=== PATIENT | female | born 2000 | race Caucasian/White ===

== ENCOUNTER 2022-06-16 09:42 | Emergency (ER) | payer MEDICAID, OTHER ==
[~2022-06-16] VITALS: Ht 157 cm; Wt 59.0 kg
[2022-06-16 09:50] VITALS: BP 100/59
[2022-06-16] MEDS ORDERED: NS IV 1000 ML 2,000 ML IV STA (09:58)
[2022-06-16] MEDS ORDERED: ONDANSETRON 4 MG/2 ML (SDV) Z0FRAN IVP ONE (10:00)
[2022-06-16 10:02] LABS: BILIRUBIN,URINE NEGATIVE (NEGATIVE); CLARITY,URINE CLEAR; COLOR,URINE YELLOW; GLUCOSE, URINE (UA) 3+ (NEGATIVE); KETONES,URINE 3+ (NEGATIVE); LEUKOCYTE ESTERASE ,URINE NEGATIVE (NEGATIVE); NITRITE,URINE NEGATIVE (NEGATIVE); PH,URINE 5.5 (5-9); PROTEIN,URINE TRACE (NEGATIVE)
--- NOTE | 2022-06-16 10:03 | ED General ---
General Chief Complaint: Abdominal/GI Problems Stated Complaint: VOMITING; ARIN SHLDR PAIN; LETHARGY Source of Information: Patient, Other (boyfriend) Exam Limitations: No Limitations History of Present Illness Date Seen by Provider: Jun 16, 2022 Time Seen by Provider: 09:46 Initial Comments 21-year-old female type I diabetic presents to the emergency department today for nausea vomiting. She states symptoms present for the last day or 2. She ran out of her diabetic testing strips. She believes she may be in DKA. She denies any fevers but has had chills. She has diffuse abdominal cramping as well as vomiting. Emesis is nonbloody nonbilious. Normal stools. Denies . No vaginal or urinary symptoms. All other systems reviewed and negative except documented per HPI. Voice recognition software was used to help create this chart Allergies and Home Medications Allergies Coded Allergies: No Known Drug Allergies (Unverified , 06/16/22) Patient Home Medication List Home Medication List Reviewed: Yes Review of Systems Review of Systems Constitutional: see HPI Past Rowxgld-Jgzfes-Waojdd Hx Patient Social History Tobacco Use?: Yes Tobacco type used: Cigarettes Smoking Status: Current Everyday Smoker Use of E-Cig and/or Vaping dev: No Substance use?: Yes Substance type: Methamphetamine, Opiates/Opioids, Misuse of prescript meds, Marijuana Substance frequency: Daily Alcohol Use?: Yes Alcohol type: Hard Liquor Alcohol Frequency: Once in a while Past Medical History Surgery/Hospitalization HX: DM TYPE 1 Physical Exam Vital Signs Vital Signs - First Documented 06/16/22 09:50 Temp 36.6 Pulse 118 Resp 16 B/P (MAP) 100/59 (73) Pulse Ox 100 O2 Delivery Room Air Capillary Refill : Height, Weight, BMI Height: '" Weight: lbs. oz. kg; BMI Method: General Appearance: No Apparent Distress, Other (Somnolent) HEENT: Normal ENT Inspection, Pharynx Normal Neck: Full Range of Motion, Normal Inspection, Supple Respiratory: Chest Non Tender, Lungs Clear, Other (Tachypnea) Cardiovascular: No Murmur, Tachycardia Gastrointestinal: Normal Bowel Sounds, Non Tender, Soft Extremity: Normal Capillary Refill, Normal Inspection, Non Tender Neurologic/Psychiatric: Alert, Oriented x3, Normal Mood/Affect Skin: Normal Color, Warm/Dry Progress/Results/Core Measures Suspected Sepsis SIRS Temperature: Pulse: Respiratory Rate: Laboratory Tests 06/16/22 10:03: White Blood Count 10.0 Blood Pressure / Mean: Laboratory Tests 06/16/22 10:03: Creatinine 0.84, Platelet Count 418H, Total Bilirubin 0.7 Results/Orders Lab Results Laboratory Tests Test 06/16/22 09:50 06/16/22 09:55 06/16/22 10:03 Range/Units Urine Color YELLOW Urine Clarity CLEAR Urine pH 5.5 5-9 Urine Specific [place] 1.025 H 1.016-1.022 Urine Protein TRACE H NEGATIVE Urine Glucose (UA) 3+ H NEGATIVE Urine Ketones 3+ H NEGATIVE Urine Nitrite NEGATIVE NEGATIVE Urine Bilirubin NEGATIVE NEGATIVE Urine Urobilinogen 0.2 < = 1.0 MG/DL Urine Leukocyte Esterase NEGATIVE NEGATIVE Urine RBC (Auto) TRACE-I H NEGATIVE Urine RBC 0-2 /HPF Urine WBC 2-5 /HPF Urine Squamous Epithelial Cells 5-10 /HPF Urine Crystals NONE /LPF Urine Bacteria NEGATIVE /HPF Urine Casts NONE /LPF Urine Mucus NEGATIVE /LPF Urine Culture Indicated NO Glucometer 570 *H 70-110 MG/DL White Blood Count 10.0 4.3-11.0 10^3/uL Red Blood Count 4.78 3.80-5.11 10^6/uL Hemoglobin 13.5 11.5-16.0 g/dL Hematocrit 42 35-52 % Mean Corpuscular Volume 87 80-99 fL Mean Corpuscular Hemoglobin 28 25-34 pg Mean Corpuscular Hemoglobin Concent 32 32-36 g/dL Red Cell Distribution Width 14.4 10.0-14.5 % Platelet Count 418 H 130-400 10^3/uL Mean Platelet Volume 9.7 9.0-12.2 fL Immature Granulocyte % (Auto) 1 % Neutrophils (%) (Auto) 76 H 42-75 % Lymphocytes (%) (Auto) 18 12-44 % Monocytes (%) (Auto) 4 0-12 % Eosinophils (%) (Auto) 1 0-10 % Basophils (%) (Auto) 1 0-10 % Neutrophils # (Auto) 7.5 1.8-7.8 10^3/uL Lymphocytes # (Auto) 1.7 1.0-4.0 10^3/uL Monocytes # (Auto) 0.4 0.0-1.0 10^3/uL Eosinophils # (Auto) 0.1 0.0-0.3 10^3/uL Basophils # (Auto) 0.1 0.0-0.1 10^3/uL Immature Granulocyte # (Auto) 0.1 0.0-0.1 10^3/uL Sodium Level 133 L 135-145 MMOL/L Potassium Level 4.8 3.6-5.0 MMOL/L Chloride Level 93 L 98-107 MMOL/L Carbon Dioxide Level 10 L 21-32 MMOL/L Anion Gap 30 H 5-14 MMOL/L Blood Urea Nitrogen 19 H 7-18 MG/DL Creatinine 0.84 0.60-1.30 MG/DL Estimat Glomerular Filtration Rate 101 BUN/Creatinine Ratio 23 Glucose Level 596 *H 70-105 MG/DL Calcium Level 10.1 8.5-10.1 MG/DL Corrected Calcium 8.5-10.1 MG/DL Total Bilirubin 0.7 0.1-1.0 MG/DL Aspartate Amino Transf (AST/SGOT) 22 5-34 U/L Alanine Aminotransferase (ALT/SGPT) 17 0-55 U/L Alkaline Phosphatase 134 40-136 U/L Total Protein 8.5 H 6.4-8.2 GM/DL Albumin 4.9 H 3.2-4.5 GM/DL Lipase 15 8-78 U/L My Orders Orders - FELISA GONZALES DO Cbc With Automated Diff (06/16/22 09:57) Comprehensive Metabolic Panel (06/16/22 09:57) Lipase (06/16/22 09:57) Ua Culture If Indicated (06/16/22 09:57) Urine Bedside (06/16/22 09:57) Ns Iv 1000 Ml (Sodium Chloride 0.9%) (06/16/22 09:58) Ondansetron Injection (Zofran Injectio (06/16/22 10:00) Ed Iv/Invasive Line Start (06/16/22 10:11) Insulin Regular Drip (Myxredlin 100 Unit (06/16/22 10:45) Medications Given in ED Current Medications Medications Dose Ordered Sig/Gabriel Route Start Time Stop Time Status Last Admin Dose Admin Ondansetron HCl 8 mg ONCE ONCE IVP 06/16/22 10:00 06/16/22 10:01 DC 06/16/22 10:05 8 MG Vital Signs/I&O 06/16/22 09:50 Temp 36.6 Pulse 118 Resp 16 B/P (MAP) 100/59 (73) Pulse Ox 100 O2 Delivery Room Air Capillary Refill : Point of Care Testing Finger Stick Blood Glucose: 570 Blood Glucose Action Taken: Dr notified Critical Care Note Critical Care Total Time (minutes) 45 Departure Communication (Admissions) Bedside glucose greater than 500. Bedside test negative. Ordered IV fluids. We will go ahead and order labs but she likely has DKA. We will wait on her potassium prior to starting insulin. No other evidence for infectious cause. This is likely secondary to medication noncompliance as stated by the patient. 1045: Spoke to Dr. Kumar who accepts the patient admission to the ICU for DKA. She has blood sugar 596. Her bicarb is significantly low and her anion gap is elevated. Sodium and potassium are normal. Renal function is relatively normal with a slightly elevated BUN. No evidence for infectious source I think this is all related to medication noncompliance. She has been given 2 L of IV fluids here and started on an insulin drip. She will be transported to [facility] in otherwise stable condition to the ICU. While waiting transport the patient called her boyfriend. He stated that he and his friends were going to [place]. She stated she wanted to go with them to do what ever they were doing I did not feel like she needed to be hospitalized at this time. I did indicate that this is a life-threatening condition and symptoms are likely to get worse, especially since she has not been using her insulin and does not have any strips to check her blood sugars. She states understanding and demands to leave stating she knows the risks. She states if she has trouble she will go straight to the ER in [place] rather than taking an ambulance there. Advised her she is welcome to come back here at any time for further evaluation and treatment. Impression Primary Impression: DKA (diabetic ketoacidosis) Qualified Codes: E10.10 - Type 1 diabetes mellitus with ketoacidosis without coma Disposition: AGAINST MEDICAL ADVICE Condition: Against Medical Advice Admissions Decision to Admit Reason: Admit from ER (General) Departure-Patient Inst. Referrals: NO,LOCAL PHYSICIAN (PCP) Primary Care Physician FELISA GONZALES DO Jun 16, 2022 10:03
[2022-06-16 10:15] LABS: BASOPHILS # (AUTO) 0.1 10^3/uL (0.0-0.1); BASOPHILS % (AUTO) 1 % (0-10); EOSINOPHILS # (AUTO) 0.1 10^3/uL (0.0-0.3); EOSINOPHILS % (AUTO) 1 % (0-10); HEMATOCRIT 42 % (35-52); HEMOGLOBIN 13.5 g/dL (11.5-16.0); LYMPHOCYTES # (AUTO) 1.7 10^3/uL (1.0-4.0); LYMPHOCYTES % (AUTO) 18 % (12-44); MEAN CORPUSCULAR HEMOGLOBIN 28 pg (25-34); MEAN CORPUSCULAR HGB CONC 32 g/dL (32-36); MEAN CORPUSCULAR VOLUME 87 fL (80-99); MEAN PLATELET VOLUME 9.7 fL (9.0-12.2); MONOCYTES # (AUTO) 0.4 10^3/uL (0.0-1.0); MONOCYTES % (AUTO) 4 % (0-12); NEUTROPHILS # (AUTO) 7.5 10^3/uL (1.8-7.8); NEUTROPHILS % (AUTO) 76 % (42-75); PLATELET COUNT 418 10^3/uL (130-400)
[2022-06-16 10:21] LABS: BACTERIA,URINE NEGATIVE /HPF; RBC,URINE 0-2 /HPF
[2022-06-16 10:32] LABS: LIPASE 15 U/L (8-78)
[2022-06-16 10:38] LABS: CARBON DIOXIDE 10 MMOL/L (21-32); CHLORIDE 93 MMOL/L (98-107); POTASSIUM 4.8 MMOL/L (3.6-5.0); SODIUM 133 MMOL/L (135-145)
[2022-06-16 10:39] LABS: ALANINE AMINOTRANSFERASE 17 U/L (0-55); ALBUMIN 4.9 GM/DL (3.2-4.5); ALKALINE PHOSPHATASE 134 U/L (40-136); BILIRUBIN,TOTAL 0.7 MG/DL (0.1-1.0); BUN/CREATININE RATIO 23; CALCIUM 10.1 MG/DL (8.5-10.1); CREATININE SERUM 0.84 MG/DL (0.60-1.30); GFR ESTIMATED 101; TOTAL PROTEIN 8.5 GM/DL (6.4-8.2)
[2022-06-16 10:41] LABS: GLUCOSE 596 MG/DL (70-105)
[2022-06-17] MEDS ORDERED: INSU100V39 SC (10:31)
[2022-06-17] MEDS ORDERED: INSN1U SC (10:31)
[2022-06-18] MEDS ORDERED: INSU100I14 SQ ×2 (10:33→11:50)
[2022-06-18] MEDS ORDERED: INSU100I10 SQ ×2 (10:33→11:50)
[2022-06-18] MEDS ORDERED: [UNRECOGNIZED DRUG - CODE] MC (12:32)
== END 2022-06-16 11:18 | disposition left against medical advice (07) ==
LOC: EDUNIT# 09:42 → ER FS 09:45
DX: E10.10 Type 1 diabetes mellitus with ketoacidosis without coma (principal); R94.4 Abnormal results of kidney function studies; T38.3X6A Underdosing of insulin and oral hypoglycemic [antidiabetic] drugs, initial encounter; F17.210 Nicotine dependence, cigarettes, uncomplicated; Z91.128 Patient's intentional underdosing of medication regimen for other reason; Z28.310 Unvaccinated for COVID-19
CPT/HCPCS: 36415; 80053; 81000; 82947; 83690; 84703; 85025

== ENCOUNTER 2022-06-16 18:41 | Inpatient (IN) | payer MEDICAID ==
[~2022-06-16] VITALS: Ht 157.5 cm; Wt 54.2 kg
[2022-06-16] MEDS ORDERED: NS IV 1000 ML 1,000 ML IV SCH ×3 (19:00→23:45)
--- NOTE | 2022-06-16 19:02 | ED General ---
General Stated Complaint: TROUBLE SEEING/AMS Source of Information: Patient Exam Limitations: No Limitations History of Present Illness Date Seen by Provider: Jun 16, 2022 Time Seen by Provider: 18:48 Initial Comments 21-year-old female presents emergency department today thinking she is in DKA. She was here this morning and left AGAINST MEDICAL ADVICE we tried to transfer her for inpatient treatment. She states she changed her mind and requests to be evaluated once again and would accept admission at this time. No other changes from this morning. She is feeling overall fatigued and having increased uri nation and thirst. No fevers or chills. She has been out of her insulin strips so not checking her blood sugars at home. She has not used insulin in a couple of days All other systems reviewed and negative except documented per HPI. Voice recognition software was used to help create this chart Allergies and Home Medications Allergies Coded Allergies: No Known Drug Allergies (Unverified , 06/16/22) Patient Home Medication List Home Medication List Reviewed: Yes Review of Systems Review of Systems Constitutional: see HPI Past Ralmfbi-Frfeir-Kkqlbb Hx Past Medical History Surgery/Hospitalization HX: DM TYPE 1 Family Medical History Reviewed Nursing Family Hx No Pertinent Family Hx Physical Exam Vital Signs Vital Signs - First Documented 06/16/22 18:53 Temp 36.7 Pulse 124 Resp 20 B/P (MAP) 119/65 (83) Pulse Ox 100 O2 Delivery Room Air Capillary Refill : Height, Weight, BMI Height: '" Weight: lbs. oz. kg; 23.00 BMI Method: General Appearance: No Apparent Distress, WD/WN, Other (Slurred speech) HEENT: Normal ENT Inspection, Pharynx Normal Neck: Full Range of Motion, Normal Inspection, Non Tender, Supple Respiratory: Chest Non Tender, Lungs Clear, Normal Breath Sounds, No Accessory Muscle Use, No Respiratory Distress Cardiovascular: No Murmur, Normal Peripheral Pulses, Tachycardia Gastrointestinal: Normal Bowel Sounds, No Organomegaly, No Pulsatile Mass, Non Tender, Soft Back: Normal Inspection Extremity: Normal Capillary Refill, No Calf Tenderness Neurologic/Psychiatric: Alert, Oriented x3, Normal Mood/Affect Skin: Normal Color, Warm/Dry Progress/Results/Core Measures Suspected Sepsis SIRS Temperature: Pulse: Respiratory Rate: Laboratory Tests 06/16/22 19:05: White Blood Count 31.5*H Blood Pressure / Mean: Laboratory Tests 4/25/23 19:05: Creatinine 0.87, Platelet Count 506H, Total Bilirubin 0.4 Results/Orders Lab Results Laboratory Tests Test 06/16/22 19:02 06/16/22 19:05 Range/Units Glucometer 434 *H 70-110 MG/DL White Blood Count 31.5 *H 4.3-11.0 10^3/uL Red Blood Count 4.58 3.80-5.11 10^6/uL Hemoglobin 13.2 11.5-16.0 g/dL Hematocrit 42 35-52 % Mean Corpuscular Volume 91 80-99 fL Mean Corpuscular Hemoglobin 29 25-34 pg Mean Corpuscular Hemoglobin Concent 32 32-36 g/dL Red Cell Distribution Width 14.8 H 10.0-14.5 % Platelet Count 506 H 130-400 10^3/uL Mean Platelet Volume 9.6 9.0-12.2 fL Immature Granulocyte % (Auto) 2 % Neutrophils (%) (Auto) 84 H 42-75 % Lymphocytes (%) (Auto) 7 L 12-44 % Monocytes (%) (Auto) 6 0-12 % Eosinophils (%) (Auto) 0 0-10 % Basophils (%) (Auto) 1 0-10 % Neutrophils # (Auto) 26.5 H 1.8-7.8 10^3/uL Lymphocytes # (Auto) 2.3 1.0-4.0 10^3/uL Monocytes # (Auto) 1.8 H 0.0-1.0 10^3/uL Eosinophils # (Auto) 0.1 0.0-0.3 10^3/uL Basophils # (Auto) 0.2 H 0.0-0.1 10^3/uL Immature Granulocyte # (Auto) 0.5 H 0.0-0.1 10^3/uL Neutrophils % (Manual) 81 % Lymphocytes % (Manual) 11 % Monocytes % (Manual) 4 % Eosinophils % (Manual) 0 % Basophils % (Manual) 0 % Band Neutrophils 4 % Toxic Granulation 1+ Sodium Level 128 L 135-145 MMOL/L Potassium Level 6.0 H 3.6-5.0 MMOL/L Chloride Level 95 L 98-107 MMOL/L Carbon Dioxide Level 4 *L 21-32 MMOL/L Anion Gap 29 H 5-14 MMOL/L Blood Urea Nitrogen 23 H 7-18 MG/DL Creatinine 0.87 0.60-1.30 MG/DL Estimat Glomerular Filtration Rate 97 BUN/Creatinine Ratio 26 Glucose Level 505 *H 70-105 MG/DL Calcium Level 9.4 8.5-10.1 MG/DL Corrected Calcium 8.5-10.1 MG/DL Total Bilirubin 0.4 0.1-1.0 MG/DL Aspartate Amino Transf (AST/SGOT) 25 5-34 U/L Alanine Aminotransferase (ALT/SGPT) 17 0-55 U/L Alkaline Phosphatase 141 H 40-136 U/L Total Protein 8.1 6.4-8.2 GM/DL Albumin 4.8 H 3.2-4.5 GM/DL My Orders Orders - FELISA GONZALES DO Cbc With Automated Diff (06/16/22 18:55) Comprehensive Metabolic Panel (06/16/22 18:55) Ns Iv 1000 Ml (Sodium Chloride 0.9%) (06/16/22 19:00) Insulin Regular Drip (Myxredlin 100 Unit (06/16/22 19:00) Iv/Invasive Line Insertion .IV INSERT (06/16/22 18:59) Manual Differential (06/16/22 19:05) Ekg Tracing (06/16/22 19:52) Calc Gluc 1 Gm/100 Ml Ivpb (Calcium Gluc (06/16/22 20:00) Sodium Bicarbonate 8.4% Syr (Sodium Bica (06/16/22 20:00) Ns Iv 1000 Ml (Sodium Chloride 0.9%) (06/16/22 20:00) Vital Signs/I&O 06/16/22 18:53 Temp 36.7 Pulse 124 Resp 20 B/P (MAP) 119/65 (83) Pulse Ox 100 O2 Delivery Room Air Capillary Refill : ECG Comment sinus tachycardia 118 bpm. Normal intervalsoutside of slightly short MA interval., normal axis. No ST or t wave abnormalities. No ectopy. Critical Care Note Critical Care Total Time (minutes) 60 Departure Communication (Admissions) Patient is hemodynamically stable, alert and oriented. She is mildly tachycardic. She is not in DKA. It is slightly worsened this morning, now has hyperkalemia as well. Once identified EKG obtained showing no EKG changes associated potassium. Given her calcium she is on an insulin drip and she is getting bicarb. I spoke to Dr. Low who accepts the patient in admission. Notably her white blood cell count was 10 this morning. It is markedly elevated now at 31. I think this is not related to infection and more likely an acute phase reactant secondary to DKA and profound hyperglycemia. Impression Primary Impression: DKA (diabetic ketoacidosis) Qualified Codes: E13.10 - Other specified diabetes mellitus with ketoacidosis without coma Disposition: XFER SHT-TRM HOSP Condition: Stable Departure-Patient Inst. Referrals: NO,LOCAL PHYSICIAN (PCP) Primary Care Physician FELISA GONZALES DO Jun 16, 2022 19:02
[2022-06-16 19:11] LABS: BASOPHILS # (AUTO) 0.2 10^3/uL (0.0-0.1); BASOPHILS % (AUTO) 1 % (0-10); EOSINOPHILS # (AUTO) 0.1 10^3/uL (0.0-0.3); EOSINOPHILS % (AUTO) 0 % (0-10); HEMATOCRIT 42 % (35-52); HEMOGLOBIN 13.2 g/dL (11.5-16.0); LYMPHOCYTES # (AUTO) 2.3 10^3/uL (1.0-4.0); LYMPHOCYTES % (AUTO) 7 % (12-44); MEAN CORPUSCULAR HEMOGLOBIN 29 pg (25-34); MEAN CORPUSCULAR HGB CONC 32 g/dL (32-36); MEAN CORPUSCULAR VOLUME 91 fL (80-99); MEAN PLATELET VOLUME 9.6 fL (9.0-12.2); MONOCYTES # (AUTO) 1.8 10^3/uL (0.0-1.0); MONOCYTES % (AUTO) 6 % (0-12); NEUTROPHILS # (AUTO) 26.5 10^3/uL (1.8-7.8); NEUTROPHILS % (AUTO) 84 % (42-75); PLATELET COUNT 506 10^3/uL (130-400)
[2022-06-16 19:14] LABS: WHITE BLOOD COUNT 31.5 10^3/uL (4.3-11.0)
[2022-06-16 19:36] LABS: SODIUM 128 MMOL/L (135-145)
[2022-06-16 19:37] LABS: CHLORIDE 95 MMOL/L (98-107)
[2022-06-16 19:38] LABS: BUN/CREATININE RATIO 26; CARBON DIOXIDE 4 MMOL/L (21-32); CREATININE SERUM 0.87 MG/DL (0.60-1.30); GFR ESTIMATED 97
[2022-06-16 19:39] LABS: ALANINE AMINOTRANSFERASE 17 U/L (0-55); ALBUMIN 4.8 GM/DL (3.2-4.5); ALKALINE PHOSPHATASE 141 U/L (40-136); BILIRUBIN,TOTAL 0.4 MG/DL (0.1-1.0); CALCIUM 9.4 MG/DL (8.5-10.1); GLUCOSE 505 MG/DL (70-105); TOTAL PROTEIN 8.1 GM/DL (6.4-8.2)
[2022-06-16 19:45] LABS: BAND NEUTROPHILS 4 %; BASOPHILS % (MANUAL) 0 %; EOSINOPHILS % (MANUAL) 0 %; LYMPHOCYTES % (MANUAL) 11 %; MONOCYTES % (MANUAL) 4 %; NEUTROPHILS % (MANUAL) 81 %; TOXIC GRANULATION/VACUOLAZATIO 1+
[2022-06-16] MEDS ORDERED: CALC GLUC 1 GM/100 ML IVPB 100 ML IV ONE (20:00)
[2022-06-16] MEDS ORDERED: SODIUM BICARB 8.4% 50 MEQ/50 ML (ABBOTT) SYR IV ONE (20:00)
[2022-06-16] MEDS ORDERED: D5 1/2 NS 1000 ML IV SOLUTION 1,000 ML IV ONE (22:18)
[2022-06-16] MEDS ORDERED: D5 1/2 NS 1000 ML IV SOLUTION 1,000 ML IV STA (22:18)
[2022-06-16 22:29] VITALS: BP 102/59
--- NOTE | 2022-06-16 23:37 | Tele-ICU Progress Note ---
Subjective Date Seen by a Provider: Jun 16, 2022 Subjective/Events-last exam This virtual visit was conducted using real time audio/video. Thank you for asking us to see this patient for critical care needs due to DKA Recent events: went AMA from ER in AM but returned. PMH: DM1 PE: Appears comfortable on camera. VSS. O2 sat 100% on RA. HEENT: No obvious masses, adenopathy or JVD. Chest: clear to auscultation. CV: RRR S1 S2 No murmur or added sounds. Abd: Non-tender. Bowel sounds Y. : Unremarkable. Alanis N. UNDERWEAR WELTER/psychiatric: Grossly intact. No obvious focal findings. Extremities: No edema. Capillary refill < 3 seconds. Skin: unremarkable. Results: Elevated WCC 31.5, BUN 23, BG 205, AG 29, K 6.0. Decreased CO2 4. CXR: none. Available chart/ vitals / labs / images reviewed. Video assessment done using teleICU camera, rest of exam as per RN. A/P: Critical Care: critically ill patient. Cont. IVF, IV insulin per DKA protocol. monitor electrolytes. Discussed with KENDALL Shields. Asked RN to reach out to eICU if any questions or concerns later. Time spent with patient/coordination of care with other health professionals (mins): 20. Sepsis Event Evaluation Height, Weight, BMI Height: '" Weight: lbs. oz. kg; 23.00 BMI Method: Exam Exam Patient acknowledged, consented, and participated in this virtual visit which was conducted using real time audio/video Vital Signs Date Time Temp Pulse Resp B/P (MAP) Pulse Ox O2 Delivery O2 Flow Rate FiO2 06/16/22 22:29 114 20 102/59 100 Room Air 06/16/22 18:53 36.7 124 20 119/65 (83) 100 Room Air Height & Weight Height: '" Weight: lbs. oz. kg; 23.00 BMI Method: General Appearance: No Apparent Distress, WD/WN, Other (Slurred speech) HEENT: Normal ENT Inspection, Pharynx Normal Neck: Full Range of Motion, Normal Inspection, Non Tender, Supple Respiratory: Chest Non Tender, Lungs Clear, Normal Breath Sounds, No Accessory Muscle Use, No Respiratory Distress Cardiovascular: No Murmur, Normal Peripheral Pulses, Tachycardia Capillary Refill: Less Than 3 Seconds Extremity: Normal Capillary Refill, No Calf Tenderness Neurologic/Psychiatric: Alert, Oriented x3, Normal Mood/Affect Skin: Normal Color, Warm/Dry Results Lab Laboratory Tests 06/16/22 19:05 Assessment/Plan Assessment/Plan See free text. Critical Care: Critically Ill Patient VINCE VOSS MD Jun 16, 2022 23:37
[2022-06-16] MEDS ORDERED: ONDANSETRON 4 MG (ZOFRAN) ORAL DISSOLVE TAB PO PRN (23:45)
[2022-06-16] MEDS ORDERED: BISACODYL 10 MG SUPP (DULCOLAX) PR PRN (23:45)
[2022-06-16] MEDS ORDERED: POTASSIUM CL 10MEQ/50ML IVPB 50 ML IV SCH (23:45)
[2022-06-16] MEDS ORDERED: MELATONIN 3 MG TABLET PO PRN (23:45)
[2022-06-16] MEDS ORDERED: polyethylene glycoL POWDER 17 GM (MIRALAX) PACK PO PRN (23:45)
[2022-06-16] MEDS ORDERED: ONDANSETRON 4 MG/2 ML (SDV) Z0FRAN IV PRN (23:45)
[2022-06-16] MEDS ORDERED: ACETAMINOPHEN 325 MG TABLET PO PRN (23:45)
[2022-06-16] MEDS ORDERED: ANTACID SUSP 30 ML UDC (MYLANTA) PO PRN (23:45)
[2022-06-16] MEDS: D5 1/2 NS 1000 ML IV SOLUTION 1,000 ML IV SCH (23:51)
[2022-06-17] MEDS: 1/2 NS IV SOLUTION 1,000 ML IV SCH ×6 (00:03→20:37)
[2022-06-17 00:15] LABS: CHLORIDE 109 MMOL/L (98-107); POTASSIUM 4.3 MMOL/L (3.6-5.0); SODIUM 133 MMOL/L (135-145)
[2022-06-17 00:16] LABS: CALCIUM 8.5 MG/DL (8.5-10.1); GLUCOSE 146 MG/DL (70-105)
[2022-06-17 00:20] LABS: CREATININE SERUM 1.14 MG/DL (0.60-1.30); GFR ESTIMATED 70
[2022-06-17 00:21] LABS: BUN/CREATININE RATIO 14
[2022-06-17 00:36] LABS: CARBON DIOXIDE < 5 MMOL/L (21-32)
[2022-06-17] MEDS: POTASSIUM CL 10MEQ/50ML IVPB 50 ML IV SCH ×5 (01:06→18:03)
[2022-06-17 02:14] LABS: POTASSIUM 4.2 MMOL/L (3.6-5.0)
[2022-06-17 02:15] LABS: CALCIUM 8.2 MG/DL (8.5-10.1)
[2022-06-17 02:19] LABS: CREATININE SERUM 1.1 MG/DL (0.60-1.30)
[2022-06-17] MEDS: D5 1/2 NS 1000 ML IV SOLUTION 1,000 ML IV SCH ×5 (03:40→22:16)
[2022-06-17 05:41] LABS: BASOPHILS # (AUTO) 0.1 10^3/uL (0.0-0.1); BASOPHILS % (AUTO) 0 % (0-10); EOSINOPHILS % (AUTO) 0 % (0-10); HEMATOCRIT 33 % (35-52); HEMOGLOBIN 10.7 g/dL (11.5-16.0); LYMPHOCYTES # (AUTO) 3.1 10^3/uL (1.0-4.0); LYMPHOCYTES % (AUTO) 19 % (12-44); MEAN CORPUSCULAR HEMOGLOBIN 29 pg (25-34); MEAN CORPUSCULAR HGB CONC 32 g/dL (32-36); MEAN CORPUSCULAR VOLUME 89 fL (80-99); MEAN PLATELET VOLUME 9.4 fL (9.0-12.2); MONOCYTES # (AUTO) 0.9 10^3/uL (0.0-1.0); MONOCYTES % (AUTO) 5 % (0-12); NEUTROPHILS # (AUTO) 12.4 10^3/uL (1.8-7.8); NEUTROPHILS % (AUTO) 75 % (42-75); PLATELET COUNT 351 10^3/uL (130-400); WHITE BLOOD COUNT 16.5 10^3/uL (4.3-11.0)
[2022-06-17 05:52] LABS: POTASSIUM 4.1 MMOL/L (3.6-5.0)
[2022-06-17 05:53] LABS: CALCIUM 7.9 MG/DL (8.5-10.1)
[2022-06-17 05:57] LABS: CREATININE SERUM 1.02 MG/DL (0.60-1.30)
[2022-06-17] MEDS: DOCUSATE SODIUM 100 MG (COLACE) CAP PO SCH ×2 (09:00→20:38)
--- NOTE | 2022-06-17 10:29 | Tele-ICU Progress Note ---
Subjective Date Seen by a Provider: Jun 17, 2022 Time Seen by a Provider: 10:29 Subjective/Events-last exam (Tele-ICU Physician , consultation as per request of PCP Service provided via interactive audio and video telecommunications E-CARE system to a patient admitted to ICU bed in [facility]. Available chart/ vitals / labs / Images reviewed H&P is from ER notes Patient's information available about PMH, Shx, Fhx allergy reviewed inEMR. ROS as per chart and RN report Now in ICU, hemodynamically stable Video assessment done using teleICU camera, rest of exam as per RN Discussed with RN. Hospital course: A/P DKA -precipitated by not taking insulin -No suspicious for new infection_ *Insulin drip, continue to monitor for resolution of acidosis, AG and electrolytes. Continue hydration. *Tx Gastroparesis Leukocytosis - reactive, , UA unremarkable >off ABX , follow reported use of metamphetamins , and ETON - monitor for withdrawl Lines : periph , (Central Line Necessity Reviewed) Alanis: void OG: Nutrition: po as tolerated Analgesia: Anxiety/ delirium VTE Prophylaxis: scd , ambulation Stress Ulcer Prophylaxis: na Glycemic Control: Plans in collaboration with bedside consultants and IM MDs. Discussed with RN to reach out if any questions or concerns A total of 15 minutes of critical care time was devoted to this patient today, required to treat and/or prevent further deterioration of critical care condition ( as above ) . I am remotely monitoring this patient from another state. I am unable to do the bedside exam, and history/physical and pertinent information is taken from other notes in the computer and bedside staff. . Sepsis Event Evaluation Height, Weight, BMI Height: '" Weight: lbs. oz. kg; 21.40 BMI Method: Exam Exam Patient acknowledged, consented, and participated in this virtual visit which was conducted using real time audio/video Vital Signs Date Time Temp Pulse Resp B/P (MAP) Pulse Ox O2 Delivery O2 Flow Rate FiO2 06/17/22 09:00 110 12 98/52 (67) 95 Room Air 06/17/22 08:00 103 13 98/61 (73) 100 Room Air 06/17/22 08:00 36.8 06/17/22 07:04 109 06/17/22 07:00 111 13 95/50 (65) 100 Room Air 06/17/22 06:00 108 12 88/53 (65) 100 Room Air 06/17/22 05:03 116 14 83/48 (60) 99 Room Air 06/17/22 05:00 115 13 82/48 (58) 99 Room Air 06/17/22 04:43 37.1 Room Air 06/17/22 04:00 112 98/65 (75) 100 Room Air 06/17/22 03:43 100 Room Air 06/17/22 03:00 116 14 101/59 (70) 100 Room Air 06/17/22 02:38 37.3 Room Air 06/17/22 02:00 110 23 94/57 (68) 100 Room Air 06/17/22 01:46 114 14 102/72 (80) 100 Room Air 06/17/22 01:30 118 9 85/63 (66) 100 Room Air 06/17/22 01:15 118 13 89/46 (61) 100 Room Air 06/17/22 01:00 120 14 88/48 (59) 100 Room Air 06/17/22 01:00 119 06/17/22 00:45 120 13 88/49 (61) 100 Room Air 06/17/22 00:30 118 13 104/65 (77) 100 Room Air 06/17/22 00:15 117 12 103/68 (79) 100 Room Air 06/17/22 00:00 114 14 98/57 (68) 100 Room Air 06/16/22 23:45 123 25 115/67 (82) 87 Room Air 06/16/22 23:34 120 15 114/69 (85) 100 Room Air 06/16/22 23:30 37.3 Room Air 06/16/22 23:30 100 Room Air 06/16/22 23:30 126 18 118/105 (112) Room Air 06/16/22 23:29 128 06/16/22 22:29 114 20 102/59 100 Room Air 06/16/22 18:53 36.7 124 20 119/65 (83) 100 Room Air I & O 06/17/22 07:00 Intake Total 3739.9 ml Output Total 400 ml Balance 3339.9 ml Height & Weight Height: '" Weight: lbs. oz. kg; 21.40 BMI Method: General Appearance: No Apparent Distress, WD/WN, Other (Slurred speech) HEENT: Normal ENT Inspection, Pharynx Normal Neck: Full Range of Motion, Normal Inspection, Non Tender, Supple Respiratory: Chest Non Tender, Lungs Clear, Normal Breath Sounds, No Accessory Muscle Use, No Respiratory Distress Cardiovascular: No Murmur, Normal Peripheral Pulses, Tachycardia Capillary Refill: Less Than 3 Seconds Extremity: Normal Capillary Refill, No Calf Tenderness Neurologic/Psychiatric: Alert, Oriented x3, Normal Mood/Affect Skin: Normal Color, Warm/Dry Results Lab Laboratory Tests 06/16/22 19:05 06/16/22 23:57 06/17/22 01:36 06/17/22 05:30 Assessment/Plan Assessment/Plan 1 DALJIT LOPES MD Jun 17, 2022 10:29
[2022-06-17] MEDS ORDERED: INSN1U SC (10:31)
[2022-06-17] MEDS ORDERED: INSU100V39 SC (10:31)
[2022-06-17 10:52] LABS: CALCIUM 8.1 MG/DL (8.5-10.1); CREATININE SERUM 0.97 MG/DL (0.60-1.30); POTASSIUM 3.8 MMOL/L (3.6-5.0)
[2022-06-17 11:26] LABS: BILIRUBIN,URINE NEGATIVE (NEGATIVE); CLARITY,URINE CLEAR; COLOR,URINE YELLOW; GLUCOSE, URINE (UA) NEGATIVE (NEGATIVE); KETONES,URINE TRACE (NEGATIVE); LEUKOCYTE ESTERASE ,URINE 1+ (NEGATIVE); NITRITE,URINE NEGATIVE (NEGATIVE); PH,URINE 5.5 (5-9); PROTEIN,URINE NEGATIVE (NEGATIVE)
[2022-06-17 11:48] LABS: BACTERIA,URINE FEW /HPF
[2022-06-17] MEDS ORDERED: CHLORASEPTIC SPRAY 177 ML LIQUID MC PRN (12:30)
[2022-06-17 13:54] LABS: CALCIUM 7.8 MG/DL (8.5-10.1); CREATININE SERUM 0.95 MG/DL (0.60-1.30); POTASSIUM 3.6 MMOL/L (3.6-5.0)
[2022-06-17 18:05] LABS: POTASSIUM 3.7 MMOL/L (3.6-5.0)
[2022-06-17 18:06] LABS: CALCIUM 8.3 MG/DL (8.5-10.1)
[2022-06-17 18:10] LABS: CREATININE SERUM 0.85 MG/DL (0.60-1.30)
--- NOTE | 2022-06-17 19:41 | History & Physical-Hospitalist ---
History of Present Illness HPI/Chief Complaint Diamante Dow is a 21 year old female with PMH T1DM who presented with fatigue. She recently moved here from [place]. She is out of her insulin. She has had increased urination. She denies fevers and chills. She denies shortness of breath and cough. She does have a sore throat. She denies abdominal pain, nausea, and vomiting. She says she normally takes Lantus 25 units nightly. She also uses a Novolog sliding scale. Source: patient Exam Limitations: clinical condition Date Seen 06/17/22 Time Seen by a Provider: 12:20 Attending Physician No,Local Physician PCP Admitting Physician: Edgar Christina MD Attending Physician: Edgar Christina MD Referring Physician Date of Admission Jun 16, 2022 at 23:19 Home Medications & Allergies Home Medications Reviewed patient Home Medication Reconciliation performed by pharmacy medication reconciliations dye lab technician and/or nursing. Patients Allergies have been reviewed. Allergies Allergies Coded Allergies No Known Drug Allergies (Unverified06/16/22) Past Ldhchew-Clmiph-Hiujhr Hx Patient Social History Tobacco Use?: Yes Tobacco type used: Cigarettes Smoking Status: Current Everyday Smoker Smokeless Tobacco Frequency: Current Someday User Use of E-Cig and/or Vaping dev: Yes E-Cig or Vaping type used: Nicotine, Marijuana Use of E-Cig and/or Vaping Fernando: Current Someday User Substance use?: Yes Substance type: Amphetamines, Methamphetamine, Opiates/Opioids, Marijuana Substance frequency: Couple times a week Alcohol Use?: Yes Alcohol type: Beer, Hard Liquor Alcohol Frequency: Several times a month Pt feels they are or have been: Yes Immunizations Up To Date Tetanus Booster (TDap): Unknown Current Status status: Unknown status: No Advance Directives: No Communicates: Verbally Primary Language: Macedonian Preferred Spoken Language: Macedonian Is interpretation needed?: No Sensory deficits: Vision impairment Implanted or Applied Medical D: None Family Medical History Reviewed Nursing Family Hx No Pertinent Family Hx Review of Systems Constitutional: weakness Respiratory: no symptoms reported Cardiovascular: no symptoms reported Gastrointestinal: no symptoms reported Physical Exam Physical Exam Vital Signs Vital Signs - First Documented 06/16/22 18:53 Temp 36.7 Pulse 124 Resp 20 B/P (MAP) 119/65 (83) Pulse Ox 100 O2 Delivery Room Air Capillary Refill : Less Than 3 Seconds Height, Weight, BMI Height: '" Weight: lbs. oz. kg; 21.40 BMI Method: General Appearance: No Apparent Distress, WD/WN HEENT: PERRL/EOMI, Pharynx Normal Neck: Normal Inspection, Supple Respiratory: Lungs Clear, No Respiratory Distress Cardiovascular: Regular Rate, Rhythm, No Edema, No Murmur Gastrointestinal: Normal Bowel Sounds, Non Tender, Soft Extremity: Normal Inspection, No Pedal Edema Neurologic/Psychiatric: Alert, No Motor/Sensory Deficits, Other (flat affect) Skin: Normal Color, Warm/Dry Results Results/Procedures Labs Laboratory Tests 06/16/22 19:05 06/16/22 23:57 06/17/22 01:36 06/17/22 05:30 06/17/22 10:10 06/17/22 13:25 06/17/22 17:44 Patient resulted labs reviewed. Imaging: Reviewed Imaging Report Assessment/Plan Admission Diagnosis T1DM with DKA Admission Status: Inpatient Order (span 2 midnights) Reason for Inpatient Admission: IV insulin Assessment and Plan T1DM with DKA Insulin gtt IV fluids Anion gap closed Blood sugar normalized Begin Levemir tonight Transition off drip 3 hours later Begin sliding scale A when drip stops Diabetes education Social work consulted Critical Care Critically Ill Patient Diagnosis/Problems Diagnosis/Problems (1) T1DM (type 1 diabetes mellitus) Status: Acute Qualifiers: Diabetes mellitus complication status: with ketoacidosis Diabetes mellitus complication detail: without coma Qualified Codes: E10.10 - Type 1 diabetes mellitus with ketoacidosis without coma (2) DKA (diabetic ketoacidosis) Status: Acute Qualifiers: Diabetes mellitus type: other specified (including CHARISMA) Diabetes mellitus complication detail: without coma Qualified Codes: E13.10 - Other specified diabetes mellitus with ketoacidosis without coma (3) Hyperkalemia Status: Acute (4) High anion gap metabolic acidosis Status: Acute (5) Hyponatremia Status: Acute EDGAR CHRISTINA MD Jun 17, 2022 19:41
[2022-06-17] MEDS: inSUlin ASPART (NovoLOG) 1 UNIT/0.01 ML (CHARGE PER UNIT) SC SCH (20:37)
[2022-06-17 22:02] LABS: POTASSIUM 3.9 MMOL/L (3.6-5.0)
[2022-06-17 22:04] LABS: CALCIUM 8.2 MG/DL (8.5-10.1)
[2022-06-18] MEDS: 1/2 NS IV SOLUTION 1,000 ML IV SCH ×4 (01:02→12:00)
[2022-06-18 05:20] LABS: BASOPHILS % (AUTO) 0 % (0-10); EOSINOPHILS # (AUTO) 0.1 10^3/uL (0.0-0.3); EOSINOPHILS % (AUTO) 1 % (0-10); HEMATOCRIT 31 % (35-52); HEMOGLOBIN 10.6 g/dL (11.5-16.0); LYMPHOCYTES # (AUTO) 2.8 10^3/uL (1.0-4.0); LYMPHOCYTES % (AUTO) 31 % (12-44); MEAN CORPUSCULAR HEMOGLOBIN 29 pg (25-34); MEAN CORPUSCULAR HGB CONC 34 g/dL (32-36); MEAN CORPUSCULAR VOLUME 84 fL (80-99); MEAN PLATELET VOLUME 9.2 fL (9.0-12.2); MONOCYTES # (AUTO) 0.5 10^3/uL (0.0-1.0); MONOCYTES % (AUTO) 5 % (0-12); NEUTROPHILS # (AUTO) 5.7 10^3/uL (1.8-7.8); NEUTROPHILS % (AUTO) 63 % (42-75); PLATELET COUNT 292 10^3/uL (130-400)
[2022-06-18 05:33] LABS: POTASSIUM 3.8 MMOL/L (3.6-5.0)
[2022-06-18 05:34] LABS: CALCIUM 8.5 MG/DL (8.5-10.1)
[2022-06-18 05:39] LABS: CREATININE SERUM 0.75 MG/DL (0.60-1.30); PHOSPHORUS 1.9 MG/DL (2.3-4.7)
[2022-06-18 05:41] LABS: MAGNESIUM 1.6 MG/DL (1.6-2.4)
[2022-06-18] MEDS ORDERED: NS IV 500 ML 500 ML IV PRN (06:15)
[2022-06-18] MEDS: MAGNESIUM 1 GM/100 ML IVPB 100 ML IV SCH ×3 (06:31→08:53)
[2022-06-18] MEDS: inSUlin ASPART (NovoLOG) 1 UNIT/0.01 ML (CHARGE PER UNIT) SC SCH ×2 (06:31→11:50)
[2022-06-18] MEDS: DOCUSATE SODIUM 100 MG (COLACE) CAP PO SCH (08:04)
--- NOTE | 2022-06-18 10:12 | Tele-ICU Progress Note ---
Subjective Date Seen by a Provider: Jun 18, 2022 Time Seen by a Provider: 10:12 Subjective/Events-last exam (Tele-ICU Physician , consultation as per request of PCP Service provided via interactive audio and video telecommunications E-CARE system to a patient admitted to ICU bed in [facility]. Available chart/ vitals / labs / Images reviewed H&P is from ER notes Patient's information available about PMH, Shx, Fhx allergy reviewed inEMR. ROS as per chart and RN report Now in ICU, hemodynamically stable Video assessment done using teleICU camera, rest of exam as per RN Discussed with RN. A/P DKA -precipitated by not taking insulin -No suspicious for new infection_ *Insulin drip OFF , continue long acting insulin Leukocytosis - reactive,, NORMALIZED , UA unremarkable >off ABX , follow reported use of metamphetamins , and ETON - monitor for withdrawl Lines : periph , (Central Line Necessity Reviewed) Alanis: void OG: Nutrition: po as tolerated Analgesia: Anxiety/ delirium VTE Prophylaxis: scd , ambulation Stress Ulcer Prophylaxis: na Glycemic Control: Plans in collaboration with bedside consultants and IM MDs. Discussed with RN to reach out if any questions or concerns A total of 7 minutes of critical care time was devoted to this patient today, required to treat and/or prevent further deterioration of critical care condition ( as above ) . I am remotely monitoring this patient from another [place]. I am unable to do the bedside exam, and history/physical and pertinent information is taken from other notes in the computer and bedside staff. . Sepsis Event Evaluation Height, Weight, BMI Height: '" Weight: lbs. oz. kg; 21.84 BMI Method: Exam Exam Patient acknowledged, consented, and participated in this virtual visit which was conducted using real time audio/video Vital Signs Date Time Temp Pulse Resp B/P (MAP) Pulse Ox O2 Delivery O2 Flow Rate FiO2 06/18/22 09:00 112 8 133/89 (104) Room Air 06/18/22 08:00 105 9 131/81 (98) Room Air 06/18/22 07:54 36.2 06/18/22 07:10 96 06/18/22 07:00 101 11 120/61 (80) Room Air 06/18/22 06:00 100 27 111/66 (81) 96 Room Air 06/18/22 05:00 69 13 106/71 (83) 92 Room Air 06/18/22 04:08 37.5 Room Air 06/18/22 04:05 99 Room Air 06/18/22 04:00 108 21 126/70 (88) 92 Room Air 06/18/22 03:00 111 13 112/68 (83) 98 Room Air 06/18/22 02:00 105 13 116/81 (93) 100 Room Air 06/18/22 01:00 105 18 132/88 (103) 98 Room Air 06/18/22 01:00 106 06/18/22 00:00 100 Room Air 06/18/22 00:00 109 15 126/78 (94) 94 Room Air 06/17/22 23:08 37.2 Room Air 06/17/22 23:00 106 16 117/74 (88) 99 Room Air 06/17/22 22:00 116 27 117/75 (89) 98 Room Air 06/17/22 21:00 108 10 98/67 (77) 99 Room Air 06/17/22 20:15 37.5 Room Air 06/17/22 20:00 116 19 107/70 (82) 99 Room Air 06/17/22 20:00 100 Room Air 06/17/22 19:00 112 14 103/70 (81) 98 Room Air 06/17/22 19:00 117 06/17/22 18:00 122 32 112/78 (89) 95 Room Air 06/17/22 17:09 37.4 06/17/22 17:00 109 16 111/73 (86) 100 Room Air 06/17/22 16:00 113 15 110/63 (79) 97 Room Air 06/17/22 16:00 98 Room Air 06/17/22 15:00 116 12 103/64 (77) 99 Room Air 06/17/22 14:00 116 15 103/66 (78) 100 Room Air 06/17/22 13:00 113 15 102/75 (84) 93 Room Air 06/17/22 12:07 102 06/17/22 12:00 100 Room Air 06/17/22 12:00 37.0 06/17/22 12:00 104 9 105/63 (77) 100 Room Air 06/17/22 11:00 109 12 108/69 (82) 90 Room Air I & O 06/18/22 07:00 Intake Total 4640 ml Output Total 5450 ml Balance -810 ml Height & Weight Height: '" Weight: lbs. oz. kg; 21.84 BMI Method: General Appearance: No Apparent Distress, WD/WN HEENT: PERRL/EOMI, Pharynx Normal Neck: Normal Inspection, Supple Respiratory: Lungs Clear, No Respiratory Distress Cardiovascular: Regular Rate, Rhythm, No Edema, No Murmur Capillary Refill: Less Than 3 Seconds Extremity: Normal Inspection, No Pedal Edema Neurologic/Psychiatric: Alert, No Motor/Sensory Deficits, Other (flat affect) Skin: Normal Color, Warm/Dry Results Lab Laboratory Tests 06/16/22 19:05 06/16/22 23:57 06/17/22 01:36 06/17/22 05:30 06/17/22 10:10 06/17/22 13:25 06/17/22 17:44 06/17/22 21:40 06/18/22 05:05 Assessment/Plan Assessment/Plan 1 DALJIT LOPES MD Jun 18, 2022 10:12
[2022-06-18] MEDS ORDERED: INSU100I10 SQ ×2 (10:33→11:50)
[2022-06-18] MEDS ORDERED: INSU100I14 SQ ×2 (10:33→11:50)
[2022-06-18] MEDS ORDERED: inSUlin ASPART (NovoLOG) 1 UNIT/0.01 ML (CHARGE PER UNIT) SC SCH (12:00)
[2022-06-18] MEDS ORDERED: [UNRECOGNIZED DRUG - CODE] MC (12:32)
--- NOTE | 2022-06-18 18:23 | Discharge Summary ---
Discharge Summary Hospital Course Was the Problem List Reviewed?: Yes Problems/Dx: (1) T1DM (type 1 diabetes mellitus) Status: Acute Qualifiers: Qualified Codes: E10.10 - Type 1 diabetes mellitus with ketoacidosis without coma (2) DKA (diabetic ketoacidosis) Status: Acute Qualifiers: Qualified Codes: E13.10 - Other specified diabetes mellitus with ketoacidosis without coma (3) Hyperkalemia Status: Acute (4) High anion gap metabolic acidosis Status: Acute (5) Hyponatremia Status: Acute Hospital Course Date of Admission: Jun 16, 2022 at 23:19 Admission Diagnosis : T1DM with DKA Family Physician/Provider: Ila,Local Physician Date of Discharge: 06/18/22 Discharge Diagnosis: T1DM with DKA Hospital Course: Diamante Dow is a 21 year old female with PMH T1DM who was admitted with DKA. She recently moved here from [place] and ran out of her insulin. She was in severe DKA with high anion gap metabolic acidosis and severely reduced bicarb. She was started on IV fluids and insulin gtt. Her anion gap and acidosis resolved. Her blood sugar normalized. She was transitioned off the drip and started on long-acting insulin. She was given a reduced dose from what she reported due to unknown compliance. She was given a prescription for Lantus and Novolog. Her blood sugar was 400 just prior to discharge. She was encouraged to stay, but refused and discharged. She was encouraged to establish at [facility]. Labs and Pending Lab Test: Laboratory Tests 06/17/22 18:21: Glucometer 103 06/17/22 18:29: Glucometer 101 06/17/22 19:39: Glucometer 187H 06/17/22 20:13: Glucometer 151H 06/17/22 21:40: Sodium Level 137, Potassium Level 3.9, Chloride Level 109H, Carbon Dioxide Level 19L, Anion Gap 9, Blood Urea Nitrogen 11, Creatinine 1.00, Estimat Glomerular Filtration Rate 82, BUN/Creatinine Ratio 11, Glucose Level 207H, Calcium Level 8.2L 06/17/22 22:04: Glucometer 211H 06/17/22 23:03: Glucometer 156H 06/18/22 03:11: Glucometer 281H 06/18/22 05:05: White Blood Count 9.0, Red Blood Count 3.69L, Hemoglobin 10.6L, Hematocrit 31L, Mean Corpuscular Volume 84, Mean Corpuscular Hemoglobin 29, Mean Corpuscular Hemoglobin Concent 34, Red Cell Distribution Width 14.8H, Platelet Count 292, Mean Platelet Volume 9.2, Immature Granulocyte % (Auto) 1, Neutrophils (%) (Auto) 63, Lymphocytes (%) (Auto) 31, Monocytes (%) (Auto) 5, Eosinophils (%) (Auto) 1, Basophils (%) (Auto) 0, Neutrophils # (Auto) 5.7, Lymphocytes # (Auto) 2.8, Monocytes # (Auto) 0.5, Eosinophils # (Auto) 0.1, Basophils # (Auto) 0.0, Immature Granulocyte # (Auto) 0.1, Sodium Level 136, Potassium Level 3.8, Chloride Level 106, Carbon Dioxide Level 20L, Anion Gap 10, Blood Urea Nitrogen 11, Creatinine 0.75, Estimat Glomerular Filtration Rate 116, BUN/Creatinine Ratio 15, Glucose Level 270H, Calcium Level 8.5, Phosphorus Level 1.9L, Magnesium Level 1.6 06/18/22 11:30: Glucometer 431*H Microbiology 06/17/22 MRSA Screen - Final, Complete MRSA not isolated 06/17/22 Urine Culture - Final, Complete 3 or more isolates No Susceptibility Performed Home Meds Active Pen [place] ([place], Insulin Disposable) 31 Gauge X 3/16" Dis.needle Each [facility] QID PHARMACIST CHOICE IF COVERED BY INSURANCE Novolog Flexpen (Insulin Aspart) 100 Unit/Ml (3 Ml) Solution 0-6 Units SQ AC PRN 30 Days MAX DOSE 6 UNITS, USE 340B [employer] Lantus Solostar (Insulin Glargine,Hum.rec.anlog) 100 Unit/Ml (3 Ml) Insuln.pen 25 Unit SQ HS 30 Days USE 340B [employer] Assessment/Pt Instructions See instructions Discharge Planning: >30 minutes discharge planning Discharge Instructions Discharge Diet: ADA Diet Activity as Tolerated: Yes Discharge Physical Examination Vital Signs Vital Signs Date Time Temp Pulse Resp B/P (MAP) Pulse Ox O2 Delivery O2 Flow Rate FiO2 06/18/22 12:07 118 06/18/22 12:00 19 Room Air 06/18/22 12:00 97 06/18/22 12:00 37.3 General Appearance: No Apparent Distress, WD/WN Respiratory: Lungs Clear, No Respiratory Distress Cardiovascular: No Murmur, Tachycardia Gastrointestinal: Normal Bowel Sounds, Soft Extremity: Normal Inspection, No Pedal Edema Skin: Normal Color, Warm/Dry Neurologic/Psychiatric: Alert, Normal Mood/Affect Allergies: Coded Allergies: No Known Drug Allergies (Unverified , 06/16/22) Copy Copies To 1: [facility] [place] Discharge Summary Date of Admission Jun 16, 2022 at 23:19 Date of Discharge Jun 18, 2022 at 12:50 Discharge Date: Jun 18, 2022 Discharge Time: 12:50 Admission Diagnosis T1DM with DKA Discharge Diagnosis T1DM with DKA (1) T1DM (type 1 diabetes mellitus) Status: Acute Qualifiers: Qualified Codes: E10.10 - Type 1 diabetes mellitus with ketoacidosis without coma (2) DKA (diabetic ketoacidosis) Status: Acute Qualifiers: Qualified Codes: E13.10 - Other specified diabetes mellitus with ketoacidosis without coma (3) Hyperkalemia Status: Acute (4) High anion gap metabolic acidosis Status: Acute (5) Hyponatremia Status: Acute EDGAR CHRISTINA MD Jun 18, 2022 18:22
[2022-06-19] MEDS ORDERED: MAGNESIUM 1 GM/100 ML IVPB 100 ML IV SCH (06:00)
[2022-06-19] MEDS ORDERED: POTASSIUM CL 10MEQ/50ML IVPB 50 ML IV SCH (06:00)
[2022-06-19] MEDS ORDERED: KCL 20 MEQ TAB (K-DUR) PO SCH (06:00)
== END 2022-06-18 12:50 | disposition home or self-care (01) | DRG 638 ==
LOC: EDUNIT# 18:41 → ER FS 18:42 → ICU 23:19
PROVIDERS: ADMIT Internal Medicine; ATTEND Internal Medicine
DX: E10.10 Type 1 diabetes mellitus with ketoacidosis without coma (principal); E87.1 Hypo-osmolality and hyponatremia; E87.5 Hyperkalemia; D72.829 Elevated white blood cell count, unspecified; F17.210 Nicotine dependence, cigarettes, uncomplicated; F15.99 Other stimulant use, unspecified with unspecified stimulant-induced disorder; F12.90 Cannabis use, unspecified, uncomplicated; F11.90 Opioid use, unspecified, uncomplicated
CPT/HCPCS: 36415; 80048; 80053; 81000; 82010; 82947; 83036; 83735; 84100; 85007; 85025; 85027; 87081; 87088; 93005